=== PATIENT | female | born 1970 | race Caucasian/White ===

== ENCOUNTER 2017-07-18 00:27 | Emergency (ER) | payer BC, OTHER ==
[~2017-07-18] VITALS: Ht 157.5 cm; Wt 122.5 kg
--- NOTE | ~2017-07-18 | EKG ---
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 07/19/17 1253 [id number] Dion Yang MD, FACC /EPI
[~2017-07-18 00:27] MED LIST: ABX; ASPIR 8181 MG PO; BYETTA PEN 11 PENIN1 SUBQ; BYETTA PEN 11 PENIN2 SUBQ; CIPRO500 MG PO; HYDROCODONE-AP1 EAC6 PO; IMDUR 30 MG TAB30 M1 PO; LANTUS100 UNIT/M SUBQ; METFORMIN HCL500 MG PO; NITROGLYCERIN0.4 MG SUBLING; NORCO 10-325 T1 EACH PO; OMEPRAZOLE20 MG PO; OMEPRAZOLE40 MG PO; PERCOCET 10-321 EACH PO; PROTONIX40 M1 PO; TOPAMAX 25 MG T25 M1 PO; TYLENOL325 MG PO; VENTOLIN HFA 1818 GM INH; ZESTRIL5 MG PO; ZOFRAN ODT4 MG DISSOLVE; ZPAK PO
[2017-07-18] MEDS ORDERED: VITAMIN D1000 UNI1 PO (00:43)
[2017-07-18 01:10] LABS: CALCIUM 9.4 mg/dL (8.5-10.1); CREATININE 0.8 mg/dL (0.6-1.0)
[2017-07-18] MEDS ORDERED: LEVAQUIN 750 M750 MG PO (02:22)
[2017-07-18] MEDS ORDERED: MUCINEX DM ER1 EACH PO (02:22)
[2017-07-18] MEDS ORDERED: ACETAMINOPHEN-1 EAC1 PO (02:22)
== END 2017-07-18 02:38 | disposition home or self-care (01) ==
LOC: ER 00:27
PROVIDERS: Emergency Medicine
DX: J18.9 Pneumonia, unspecified organism (principal); E11.9 Type 2 diabetes mellitus without complications; I10 Essential (primary) hypertension; Z90.49 Acquired absence of other specified parts of digestive tract

== ENCOUNTER 2017-10-22 17:17 | Emergency (ER) | payer OTHER ==
[~2017-10-22] VITALS: Ht 157.5 cm; Wt 127.0 kg
[~2017-10-22 17:17] MED LIST changes: +ACETAMINOPHEN-1 EAC1 PO; +LEVAQUIN 750 M750 MG PO; +MUCINEX DM ER1 EACH PO; +VITAMIN D1000 UNI1 PO
[2017-10-22 18:07] LABS: URINE BILIRUBIN NEGATIVE (Negative); URINE BLOOD NEGATIVE (Negative); URINE CLARITY CLEAR; URINE COLOR YELLOW; URINE GLUCOSE-RANDOM* NEGATIVE (Negative); URINE KETONES NEGATIVE (Negative); URINE LEUKOCYTES-REFLEX NEGATIVE (Negative); URINE NITRITE-REFLEX NEGATIVE (Negative); URINE PROTEIN (DIPSTICK) NEGATIVE (Negative); URINE SPECIFIC GRAVITY >= 1.030 (1.005-1.035); URINE UROBILINOGEN 0.2 E.U./dl (0.2-1.0)
[2017-10-22 18:07] LABS: ABSOLUTE NEUTROPHILS 5.7 thou/uL (1.4-8.2); BASOPHILS 0.9 % (0.0-2.0); HEMATOCRIT 38.8 % (37.0-47.0); HEMOGLOBIN 12.7 gm/dL (12.0-15.0); LYMPHOCYTES 30.7 % (24.0-44.0); MCH 25.5 pg (26.0-34.0); MCHC 32.9 g/dL (28.0-37.0); MCV 77.6 fL (80.0-100.0); MONOCYTES 4.3 % (1.0-8.0); PLATELET COUNT 195 thou/uL (150-400); POLYS 61.1 % (36.0-66.0); RDW 15.3 % (10.5-14.5); WBC 9.2 thou/uL (4.0-11.0)
[2017-10-22 18:18] LABS: CREATININE 0.8 mg/dL (0.6-1.0); POTASSIUM 3.8 mmol/L (3.5-5.1)
[2017-10-22 18:36] LABS: ALBUMIN 3.8 g/dL (3.4-5.0); TOTAL BILIRUBIN 0.6 mg/dL (<0.1-1.0); TOTAL PROTEIN 7.7 g/dL (6.4-8.2)
[2017-10-22] MEDS ORDERED: ULTRAM 50MG TAB50 MG PO (19:07)
== END 2017-10-22 19:12 | disposition home or self-care (01) ==
LOC: ER 17:17
PROVIDERS: Physician Assistant
DX: R10.9 Unspecified abdominal pain (principal); K74.60 Unspecified cirrhosis of liver; E11.9 Type 2 diabetes mellitus without complications; I10 Essential (primary) hypertension; Z90.89 Acquired absence of other organs; Z87.442 Personal history of urinary calculi; Z90.710 Acquired absence of both cervix and uterus; Z90.49 Acquired absence of other specified parts of digestive tract; Z87.891 Personal history of nicotine dependence